=== PATIENT | male | born 1955 | race Two or more races ===

== ENCOUNTER 2019-01-11 13:50 | Emergency (ER) | payer OTHER ==
[~2019-01-11] VITALS: Ht 172.7 cm; Wt 99.8 kg
== END 2019-01-11 16:00 | disposition home or self-care (01) ==
LOC: ER 13:50
DX: R33.8 Other retention of urine (principal)

== ENCOUNTER 2019-02-07 04:33 | Emergency (ER) | payer OTHER ==
[~2019-02-07] VITALS: Ht 172.7 cm; Wt 99.8 kg
[2019-02-07] MEDS ORDERED: COZAAR25 MG (04:47)
[2019-02-07] MEDS ORDERED: LASIX20 MG (04:47)
[2019-02-07] MEDS ORDERED: LISINOPRIL5 MG (04:47)
[2019-02-07] MEDS ORDERED: CASODEX50 MG (04:47)
[2019-02-07] MEDS ORDERED: TAMS0.4C (04:47)
== END 2019-02-07 05:31 | disposition home or self-care (01) ==
LOC: ER 04:33
DX: R33.8 Other retention of urine (principal)

== ENCOUNTER 2019-02-08 10:08 | Inpatient (IN) | payer OTHER ==
[~2019-02-08] VITALS: Ht 172.7 cm; Wt 95.3 kg
[~2019-02-08 10:08] MED LIST: CASODEX50 MG; COZAAR25 MG; LASIX20 MG; LISINOPRIL5 MG; TAMS0.4C
== END 2019-02-12 11:56 | disposition home or self-care (01) | DRG 872 ==
LOC: ER 10:08 → SURH 18:00 → SEC-K 18:00 → SURH 19:13
PROVIDERS: ADMIT Urology
DX: A41.9 Sepsis, unspecified organism (principal); N39.0 Urinary tract infection, site not specified; C79.51 Secondary malignant neoplasm of bone; R33.8 Other retention of urine; B96.5 Pseudomonas (aeruginosa) (mallei) (pseudomallei) as the cause of diseases classified elsewhere; C61 Malignant neoplasm of prostate; N40.0 Benign prostatic hyperplasia without lower urinary tract symptoms; I10 Essential (primary) hypertension

== ENCOUNTER 2023-04-16 13:50 | Emergency (ER) | payer OTHER ==
[~2023-04-16] VITALS: Ht 172.7 cm; Wt 97.5 kg
[2023-04-16] MEDS ORDERED: TAMS0.4C PO (14:07)
[2023-04-16] MEDS ORDERED: SULINDAC200 MG PO (14:07)
== END 2023-04-16 16:43 | disposition home or self-care (01) ==
LOC: ER 13:50
PROVIDERS: General Practice
DX: J06.9 Acute upper respiratory infection, unspecified (principal); Z20.822 Contact with and (suspected) exposure to COVID-19; M54.50 Low back pain, unspecified; I10 Essential (primary) hypertension; Z85.46 Personal history of malignant neoplasm of prostate

== ENCOUNTER 2023-10-28 09:02 | Inpatient (IN) | payer OTHER ==
[~2023-10-28] VITALS: Ht 172.7 cm; Wt 97.5 kg
[~2023-10-28 09:02] MED LIST changes: +SULINDAC200 MG PO; +TAMS0.4C PO
[2023-10-28] MEDS ORDERED: METHYLPREDNISOLONE SOD SUCC 125 MG VIAL IV ONE (09:45)
[2023-10-28] MEDS ORDERED: GUAIFENESIN/DEXTROMETHORPHAN 100 MG/5 ML ML PO ONE (09:45)
[2023-10-28] MEDS ORDERED: LEVALBUTEROL HCL 1.25 MG/3 ML SOLUTION IH SCH (09:45)
[2023-10-28] MEDS ORDERED: 0.9 % SODIUM CHLORIDE 1,000 ML IV SCH (09:45)
[2023-10-28 10:04] LABS: URINE APPEARANCE Clear; URINE BILIRRUBIN Negative (NEGATIVE); URINE BLOOD Negative; URINE COLOR Yellow; URINE GLUCOSE Negative (NEGATIVE); URINE LEUKOCYTE Negative; URINE NITRATE Negative; URINE PROTEIN Trace (NEGATIVE)
[2023-10-28 10:05] LABS: URINE BACTERIA 6.2 uL (0.0-1933); URINE EPITHELIAL CELLS 2.7 uL (0.0-38.8)
[2023-10-28 10:09] LABS: URINE WBC 1.3 uL (0.0-23.2)
[2023-10-28 10:19] LABS: HEMATOCRIT 36.9 % (39.0-48.0); HEMOGLOBIN 12.2 g/dL (13-16.00); MEAN CELL VOLUME 93.1 fL (80.0-100.00); MEAN CORPUSCULAR HEMOGLOBIN 30.9 pg (27.00-32.0); MEAN CORPUSCULAR HGB CONC 33.2 g/dl (32.0-36.0); PLATELET COUNT 191 K/uL (150-450); RED BLOOD COUNT 3.97 M/uL (4.00-6.00); RED CELL DISTRIBUTION WIDTH 12.9 % (11.5-14.5)
[2023-10-28 10:25] LABS: ALBUMIN 3.4 gm/dL (3.4-5.0); BILIRUBIN TOTAL 1.15 mg/dL (0.3-1.2); CALCIUM 9.3 mg/dL (8.5-10.1); CREATININE SERUM 0.84 mg/dL (0.70-1.30); GFR 90.33; GLOBULINA 4.6 G/DL (2.4-3.5); POTASSIUM 3.89 mEq/L (3.5-5.1)
[2023-10-28] MEDS ORDERED: FUROsemide 40 MG/4 ML VIAL IV ONE (11:45)
[2023-10-28 12:20] LABS: ABG PH 7.415 (7.35-7.45)
[2023-10-28 12:21] LABS: ABG PO2 80.8 mmHg (80-100); ABG pCO2 42.8 mmHg (35-45); BASE EXCESS 1.9 mmol/l; BICARBONATE 26.8 mmol/l (23-25); SaO2 96.1 %; Tco2 28.1 mmol/l; o2 21 %
[2023-10-28 12:22] LABS: allen test SATISFACTORY; puncture site RADIAL RIGHT
[2023-10-28] MEDS ORDERED: DILTIAZEM HCL 25 MG/5 ML VIAL IV ONE (13:45)
[2023-10-28 14:32] LABS: INR 0.98; PROTHROMBIN TIME 10.3 SECONDS (9.0-11.5)
[2023-10-28 14:36] LABS: PARTIAL THROMBOPLASTIN TIME < 20.0 SECONDS (22.0-34.0)
[2023-10-28 14:42] LABS: ALT/SGPT 32 U/L (12-78); AST/SGOT 24 U/L (15-37); LDH 268 U/L (87-241); PHOSPHOKINASE CREATININE 96 U/L (39-308)
[2023-10-28] MEDS ORDERED: CLOPIDOGREL BISULFATE 75 MG TABLET PO SCH (17:28)
[2023-10-28] MEDS ORDERED: FAMOTIDINE/PF 20 MG/2 ML VIAL IV SCH (17:28)
[2023-10-28] MEDS ORDERED: ATORVASTATIN CALCIUM 40 MG TABLET PO SCH (17:37)
[2023-10-28] MEDS ORDERED: FUROsemide 20 MG/2 ML VIAL IV SCH (17:38)
[2023-10-28] MEDS ORDERED: ACETAMINOPHEN 325 MG TABLET PO PRN (17:45)
[2023-10-28] MEDS ORDERED: DILTIAZEM HCL 125MG/25ML VIAL IV SCH (17:45)
[2023-10-28 18:25] LABS: CKMB 1.5 NG/ML (0.5-3.6)
[2023-10-29] MEDS ORDERED: CODEINE/PROMETHAZINE HCL 1 ML ML PO SCH (01:29)
[2023-10-29 07:10] LABS: ABG PH 7.439 (7.35-7.45); ABG PO2 85.4 mmHg (80-100); BASE EXCESS 2.2 mmol/l; BICARBONATE 26.5 mmol/l (23-25); SaO2 96.9 %; Tco2 27.7 mmol/l
[2023-10-29 07:11] LABS: allen test SATISFACTORY; o2 28 %; puncture site RADIAL RIGHT
[2023-10-29] MEDS ORDERED: LOSARTAN POTASSIUM 100 MG TABLET PO SCH (10:18)
[2023-10-29] MEDS ORDERED: DILTIAZEM HCL 125 MG in 0.9 % SODIUM CHLORIDE 100 ML IV SCH (19:45)
[2023-10-29] MEDS ORDERED: ACETAMINOPHEN 500 MG GEL..CAP PO PRN (19:45)
[2023-10-30] MEDS ORDERED: METOPROLOL TARTRATE 25 MG TABLET PO SCH (09:00)
[2023-10-30] MEDS ORDERED: METOPROLOL SUCCINATE 25 MG TAB.SR.24H PO SCH (09:00)
[2023-10-30] MEDS ORDERED: ENOXAPARIN SODIUM 100 MG/ML SYRINGE SUBCUTANEO SCH (09:00)
[2023-10-31] MEDS ORDERED: METOPROLOL SUCCINATE 50 MG TAB.SR.24H PO SCH (09:00)
== END 2023-10-31 10:39 | disposition designated cancer center or children's hospital (05) | DRG 291 ==
LOC: ER 09:03 → MEDI 17:30
PROVIDERS: General Practice; ADMIT Internal Medicine; ATTEND Internal Medicine
PROC: 4A12X4Z Monitoring of Cardiac Electrical Activity, External Approach (ICD-10-PCS; principal; 2023-10-28)
PROC: B246ZZZ Ultrasonography of Right and Left Heart (ICD-10-PCS; 2023-10-28)
PROC: BB24ZZZ Computerized Tomography (CT Scan) of Bilateral Lungs (ICD-10-PCS; 2023-10-28)
PROC: 3E0F7GC Introduction of Other Therapeutic Substance into Respiratory Tract, Via Natural or Artificial Opening (ICD-10-PCS; 2023-10-28)
DX: I11.0 Hypertensive heart disease with heart failure (principal); I50.23 Acute on chronic systolic (congestive) heart failure; I48.20 Chronic atrial fibrillation, unspecified; C79.51 Secondary malignant neoplasm of bone; C79.82 Secondary malignant neoplasm of genital organs; I25.10 Atherosclerotic heart disease of native coronary artery without angina pectoris; I08.0 Rheumatic disorders of both mitral and aortic valves; I42.0 Dilated cardiomyopathy; R06.02 Shortness of breath; Z92.21 Personal history of antineoplastic chemotherapy

== ENCOUNTER 2024-04-23 21:36 | Emergency (ER) | payer OTHER ==
[~2024-04-23] VITALS: Ht 172.7 cm; Wt 93.0 kg
[2024-04-23] MEDS ORDERED: BENZONATATE 100 MG CAPSULE PO ONE (22:30)
[2024-04-23] MEDS ORDERED: LEVALBUTEROL HCL 1.25 MG/3 ML SOLUTION IH ONE (22:30)
[2024-04-23 22:34] LABS: ABG PO2 82.6 mmHg (80-100); ABG pCO2 39.3 mmHg (35-45); BASE EXCESS -0.8 mmol/l; BICARBONATE 23.8 mmol/l (23-25)
[2024-04-23 22:57] LABS: allen test SATISFACTORY; o2 21 %; puncture site RADIAL RIGHT
[2024-04-23 23:27] LABS: HEMATOCRIT 36.9 % (39.0-48.0); HEMOGLOBIN 12.4 g/dL (13-16.00); MEAN CORPUSCULAR HEMOGLOBIN 31.8 pg (27.00-32.0); MEAN CORPUSCULAR HGB CONC 33.5 g/dl (32.0-36.0); PLATELET COUNT 188 K/uL (150-450); RED BLOOD COUNT 3.88 M/uL (4.00-6.00); RED CELL DISTRIBUTION WIDTH 12.7 % (11.5-14.5)
[2024-04-24 00:08] LABS: URINE APPEARANCE Clear; URINE BILIRRUBIN Negative (NEGATIVE); URINE BLOOD Negative; URINE COLOR Yellow; URINE KETONE Negative (NEGATIVE); URINE LEUKOCYTE Negative; URINE NITRATE Negative; URINE PROTEIN Negative (NEGATIVE)
[2024-04-24 00:12] LABS: URINE BACTERIA 211.6 uL (0.0-1933)
[2024-04-24 00:13] LABS: ALBUMIN 3.4 gm/dL (3.4-5.0); BILIRUBIN TOTAL 0.53 mg/dL (0.3-1.2); CALCIUM 8.6 mg/dL (8.5-10.1); CREATININE SERUM 1.24 mg/dL (0.70-1.30); GFR 57.63; GLOBULINA 3.7 G/DL (2.4-3.5); POTASSIUM 4.26 mEq/L (3.5-5.1); TOTAL PROTEIN 7.1 gm/dL (6.4-8.2)
[2024-04-24 00:15] LABS: URINE GLUCOSE >=1000 MG/DL (NEGATIVE); URINE RBC 1.2 uL (0.0-20.8)
[2024-04-24 01:27] LABS: INR 1.13; PARTIAL THROMBOPLASTIN TIME 31.9 SECONDS (22.0-34.0); PROTHROMBIN TIME 12.2 SECONDS (9.0-11.5)
[2024-04-24] MEDS ORDERED: LEVALBUTER0.63 MG/3 IH (04:05)
[2024-04-24] MEDS ORDERED: BUDESONIDE0.5 MG/2 M IH (04:05)
[2024-04-24] MEDS ORDERED: ZYNCOF 20-400120 ML PO (04:05)
== END 2024-04-24 04:09 ==
LOC: ER 21:38
PROVIDERS: General Practice
DX: J06.9 Acute upper respiratory infection, unspecified (principal); R05.9 Cough, unspecified; Z20.822 Contact with and (suspected) exposure to COVID-19; I10 Essential (primary) hypertension

== ENCOUNTER 2024-11-17 12:28 | Outpatient (CLI) | payer OTHER ==
[~2024-11-17 12:28] MED LIST changes: +BUDESONIDE0.5 MG/2 M IH; +LEVALBUTER0.63 MG/3 IH; +ZYNCOF 20-400120 ML PO
== END 2024-11-17 12:32 | disposition home or self-care (01) ==
LOC: RAD 12:28
PROVIDERS: ATTEND Urology
DX: C61 Malignant neoplasm of prostate (principal)

== ENCOUNTER 2024-12-09 20:34 | Emergency (ER) | payer OTHER ==
[~2024-12-09] VITALS: Ht 172.7 cm; Wt 96.6 kg
[2024-12-09] MEDS ORDERED: ASPIRIN 325 MG TABLET.EC PO STA (22:07)
[2024-12-09 23:10] LABS: HEMOGLOBIN 12.5 g/dL (13-16.00); MEAN CELL VOLUME 96.7 fL (80.0-100.00); MEAN CORPUSCULAR HEMOGLOBIN 31.9 pg (27.00-32.0); PLATELET COUNT 216 K/uL (150-450); RED BLOOD COUNT 3.92 M/uL (4.00-6.00); RED CELL DISTRIBUTION WIDTH 12.7 % (11.5-14.5)
[2024-12-09 23:23] LABS: INR 1.05; PARTIAL THROMBOPLASTIN TIME 25.6 SECONDS (22.0-34.0); PROTHROMBIN TIME 11.4 SECONDS (9.0-11.5)
[2024-12-09 23:28] LABS: CALCIUM 8.4 mg/dL (8.5-10.1); CREATININE SERUM 1.03 mg/dL (0.70-1.30); GFR 71.19; POTASSIUM 3.92 mEq/L (3.5-5.1)
[2024-12-10] MEDS ORDERED: KETO10TA2 PO (05:37)
== END 2024-12-10 07:37 ==
LOC: ER 20:34
PROVIDERS: Emergency Medicine
DX: R07.89 Other chest pain (principal); I10 Essential (primary) hypertension

== ENCOUNTER 2024-12-19 12:03 | Outpatient (CLI) | payer OTHER ==
[~2024-12-19 12:03] MED LIST changes: +KETO10TA2 PO
== END 2024-12-19 12:04 | disposition home or self-care (01) ==
LOC: NUCLEAR 12:03
PROVIDERS: ATTEND Orthopaedic Surgery
DX: M81.0 Age-related osteoporosis without current pathological fracture (principal)

== ENCOUNTER 2025-01-02 08:51 | Outpatient (CLI) | payer OTHER | END 2025-01-02 08:57 | disposition home or self-care (01) | LOC: RAD 08:51 | PROVIDERS: ATTEND Orthopaedic Surgery | DX: D49.2 Neoplasm of unspecified behavior of bone, soft tissue, and skin (principal) ==

== ENCOUNTER → 2025-03-03 | Outpatient (CLI) | payer OTHER | END | disposition home or self-care (01) | LOC: MRI 10:05 | PROVIDERS: ATTEND Orthopaedic Surgery | DX: M51.379 Other intervertebral disc degeneration, lumbosacral region without mention of lumbar back pain or lower extremity pain (principal) | CPT/HCPCS: 72148 ==

== ENCOUNTER 2025-04-07 19:13 | Emergency (ER) | payer OTHER ==
[~2025-04-07] VITALS: Ht 172.7 cm; Wt 94.3 kg
[2025-04-07] MEDS ORDERED: KETOROLAC TROMETHAMINE 60 MG VIAL IM STA (22:59)
[2025-04-07] MEDS ORDERED: DEXAMETHASONE SODIUM PHOSPHATE 4 MG/ML VIAL IM STA (23:00)
[2025-04-07] MEDS ORDERED: TRAMADOL HCL 50 MG TABLET PO STA (23:02)
[2025-04-07] MEDS ORDERED: DEXAMETHASONE SODIUM PHOSPHATE 4 MG/ML VIAL ONE (23:27)
[2025-04-07] MEDS ORDERED: KETOROLAC TROMETHAMINE 60 MG VIAL IM ONE (23:27)
== END 2025-04-08 00:48 | disposition home or self-care (01) ==
LOC: ER 19:13
DX: M54.42 Lumbago with sciatica, left side (principal)
CPT/HCPCS: 96372; 99282; J1100; J1885

== ENCOUNTER 2025-05-12 11:00 | Day surgery (SDC) | payer OTHER ==
[2025-05-08 09:58] LABS: BASO % 0.7 % (0.1-1.2); EOS # 0.15 (0.04-0.54); EOS % 1.7 % (0.7-7.0); LYMPH # 1.83 (1.18-3.74); LYMPH % 20.4 % (19.3-53.1); MEAN PLATELET VOLUME 9.60 fl (9.4-12.4); MONO # 0.93 (0.24-0.82); MONO % 10.4 % (4.7-12.5); NEUT # 5.91 (1.56-6.13); NEUT % 65.8 % (34.0-71.1); RED CELL DISTRIBUTION WIDTH 12.1 % (11.6-14.4)
[2025-05-08 10:04] VITALS: BP 126/72
[2025-05-08 10:14] LABS: URINE APPEARANCE Clear; URINE BILIRRUBIN Negative (NEGATIVE); URINE BLOOD Negative; URINE COLOR Yellow; URINE KETONE Negative (NEGATIVE); URINE LEUKOCYTE Negative; URINE NITRATE Negative; URINE PROTEIN Negative (NEGATIVE); URINE UROBILINOGEN 0.2 E.U./dl
[2025-05-08 10:18] LABS: URINE BACTERIA 132.0 uL (0.0-1933); URINE EPITHELIAL CELLS 4.7 uL (0.0-38.8); URINE WBC 2.9 uL (0.0-23.2)
[2025-05-08 10:23] LABS: URINE CAST 0.73 uL (0.0-1.40); URINE GLUCOSE 500 MG/DL (NEGATIVE); URINE RBC 1.4 uL (0.0-20.8)
[2025-05-08 10:29] LABS: INR 1.01
[2025-05-08 11:02] LABS: ALT/SGPT 20.0 U/L (12-78); AST/SGOT 24.0 U/L (15-37); BILIRUBIN TOTAL 0.77 mg/dL (0.3-1.2); BUN CREA RATIO 24.0 (7.0-25.0); CREATININE SERUM 0.92 mg/dL (0.70-1.30); GFR 81.1; GLOBULINA 3.8 G/DL (2.4-3.5); GLUCOSE FASTING 95.0 mg/dL (65-100); OSMOLALITY SERUM 288.0 MOSM/KG (275-295)
[~2025-05-12] VITALS: Ht 172.7 cm; Wt 93.0 kg
[~2025-05-12 11:00] MED LIST changes: +ELIQUIS5 MG PO; +PACERONE200 MG PO; +PLAVIX75 MG PO; +SPIRONOLACTONE25 MG PO; +TOPROL XL25 M1 PO
[2025-05-12] MEDS ORDERED: CEFAZOLIN SODIUM 1,000 MG VIAL ONE (12:00)
[2025-05-12] MEDS ORDERED: LIDOCAINE HCL 1% 10ML VIAL ONE ×2 (14:52→15:02)
[2025-05-12] MEDS ORDERED: LIDOCAINE HCL 1%/EPINEPHRINE 10 ML VIAL IJ ONE (14:52)
[2025-05-12] MEDS ORDERED: HEPARIN SODIUM,PORCINE/PF 100 UNIT/ML SYRINGE IV ONE ×2 (14:53→15:18)
[2025-05-12] MEDS ORDERED: LIDOCAINE HCL 1% 20 ML VIAL IJ ONE (15:18)
[2025-05-12] MEDS ORDERED: CEFAZOLIN SODIUM 1,000 MG VIAL IV SCH (17:30)
== END 2025-05-12 18:40 | disposition home or self-care (01) ==
LOC: CIR.AMB 11:00
PROVIDERS: ATTEND Specialist
DX: C61 Malignant neoplasm of prostate (principal); C77.9 Secondary and unspecified malignant neoplasm of lymph node, unspecified
CPT/HCPCS: 36561; C1751